=== PATIENT | female | born 1985 | race Two or more races ===

== ENCOUNTER 2016-12-16 19:44 | Emergency (ER) ==
[2016-12-16 19:50] VITALS: BP 113/78; TEMP 98.3; BMI 31.0
--- NOTE | 2016-12-16 19:57 | ED.PDOC ---
General ED Provider: Dr. MAGI FLORIAN-ER Chief Complaint: Sore Throat Stated Complaint: i have a sore throat--my son tested positive for strep Time Seen by Physician: 19:50 Mode of Arrival: Walk-In Information Source: Patient Exam Limitations: No limitations [facility] T[facility] Documentation Reviewed and Agree: Yes EENT Complaint Exam - Throat Complaint/Exam Onset/Duration: 24hrs Symptoms Are: Still present Timimg: Constant Initial Severity: Mild Current Severity: Mild Aggravating: Reports: Eating Alleviating: Reports: Antipyretics Associated Signs and Symptoms: Reports: Fever, Nasal congestion. Denies: Dysphagia, Drooling, Foreign body sensation, Chills, Cough, Wheezing, Hoarseness , Sinus discomfort, Difficulty breathing, Lethargy, Irritability, Decreased activity, Vomiting, Diarrhea, Decreased hearing, Ear drainage Related History: Reports: Similar Episode Uvula Midline: Yes Tasha-tonsillar Fluctuence: No Scarlatinaform Rash Present: No Exanthem: Present: Pharynx Stridor Present: No Sinus Tenderness Present: No Tonsillar Hypertrophy Present: No Tonsillar Exudate Present: No Tasha-tonsillar Swelling Present: No Adenopathy Present: Yes Splenomegaly Present: No Differential Diagnoses: Pharyngitis Review of Systems - Review Of Systems Constitutional: Reports: Fever Eyes: Reports: No symptoms Ears, Nose, Mouth, Throat: Reports: Nose discharge, Throat pain Respiratory: Reports: No symptoms Cardiac: Reports: No symptoms GI: Reports: No symptoms : Reports: No symptoms Musculoskeletal: Reports: No symptoms Skin: Reports: No symptoms Neurological: Reports: No symptoms Endocrine: Reports: No symptoms Hematologic/Lymphatic: Reports: No symptoms All Other Systems: Reviewed and Negative Past Medical History - Past Medical History Endocrine: Reports: Unknown Cardiovascular: Reports: Unknown Respiratory: Reports: Unknown Hematological: Reports: Unknown Gastrointestinal: Reports: Unknown Genitourinary: Reports: Unknown Neuro/Psych: Reports: Unknown Musculoskeletal: Reports: Unknown Cancer: Reports: Unknown Last Menstrual Period: 11/19/16 - Surgical History General Surgical History: Reports: Unknown - Family History Family History: Reports: Unknown - Social History Smoking Status: Current every day smoker Hx Substance Use: No Alcohol Screening: Occasionally - Immunizations Tetanus Shot up to Date: Yes Physical Exam - Physical Exam Appearance: Well-appearing, No pain distress, Well-nourished Pain Distress: Mild Eyes: CHERYL, EOMI, Conjunctiva clear ENT: Rhinorrhea, Erythema Neck: Supple Respiratory: Airway patent, Breath sounds clear, Breath sounds equal, Respirations nonlabored Cardiovascular: RRR, Pulses normal, No rub, No murmur GI/: Soft, Nontender, No masses, Bowel sounds normal, No Organomegaly Musculoskeletal: Normal strength, ROM intact, No edema, No calf tenderness Skin: Warm, Dry, Normal color Neurological: Sensation intact, Motor intact, Reflexes intact, Cranial nerves intact, Alert, Oriented Psychiatric: Affect appropriate, Mood appropriate Critical Care Note - Critical Care Note Total Time (mins): 0 Course - Course Orders, Labs, Meds: Orders Category Date Time Status RAPID FLU A/B Stat LAB 12/16/16 19:44 Uncollected STREP SCREEN Stat LAB 12/16/16 19:44 Uncollected Vital Signs: Temp Pulse Resp BP Pulse Ox 12/16/16 19:44 98.3 F 99 H 20 113/78 97 Departure - Departure Time of Disposition: 19:56 Disposition: HOME SELF-CARE Discharge Problem: Sore throat symptom Instructions: Pharyngitis (ED) Condition: Good Pt referred to PMD for follow-up: Yes Additional Instructions: amoxil 250mg tid x 7 days--tylenol for pain--salt water gargles--rdheck in 72hrs if not better Allergies/Adverse Reactions: Allergies No Known Allergies Allergy (Verified 12/16/16 19:50) Home Medications: Ambulatory Orders Albuterol Sulfate [Proventil Hfa] 2 inh PO Q4H PRN 12/06/13 Disposition Discussed With: Patient, Family
[2016-12-16 20:18] LABS: FLU INTERNAL QC INTERNAL QC VALID; RAPID FLU A NEGATIVE (NEGATIVE); RAPID FLU B NEGATIVE (NEGATIVE)
== END 2016-12-16 20:29 | disposition home or self-care (01) ==
LOC: ED 19:44
DX: J02.9 Acute pharyngitis, unspecified (principal); F17.210 Nicotine dependence, cigarettes, uncomplicated
CPT/HCPCS: 87651; 87804; 87880; 99283

== ENCOUNTER 2017-03-21 19:36 | Emergency (ER) | payer OTHER ==
[2017-03-21 19:47] VITALS: BP 102/69; TEMP 98.3; BMI 28.6
[2017-03-21] MEDS ORDERED: OXYCODONE PO STA (20:06)
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
--- NOTE | 2017-03-21 20:38 | DI ---
EXAM: Right hand; PA, lateral, and oblique views HISTORY: Hand pain COMPARSION: Wrist radiograph from same day. FINDINGS: There is no acute fracture or dislocation. Joint spaces and alignment are maintained. Soft tissues are unremarkable. OPINION: No acute osseous abnormality of the hand.
== END 2017-03-21 20:59 | disposition home or self-care (01) ==
LOC: ED 19:36
DX: S63.501A Unspecified sprain of right wrist, initial encounter (principal); S69.91XA Unspecified injury of right wrist, hand and finger(s), initial encounter; W21.89XA Striking against or struck by other sports equipment, initial encounter
CPT/HCPCS: 99282

== ENCOUNTER 2017-12-29 09:33 | Emergency (ER) ==
[2017-12-29 09:42] VITALS: BP 124/87; TEMP 97.2; BMI 28.6
--- NOTE | 2017-12-29 10:24 | CT ---
EXAM: CT scan brain without contrast HISTORY: Fall COMPARISON: None. FINDINGS: Contiguous axial images obtained from the skull base to the convexities without contrast u tilizing 5-mm collimation. Sagittal and coronal reconstructions were imaged and reviewed. The ventr icles and CSF spaces are within normal limits. There are no acute intracranial findings. Visualized paranasal sinuses and mastoid air cells are clear. The calvarium is intact. IMPRESSION: No acute intracranial findings
--- NOTE | 2017-12-29 10:50 | CT ---
EXAM: CT scan cervical spine HISTORY: Fall COMPARISON: None. FINDINGS: Contiguous axial images obtained from the skull base through C7-C2 one utilizing 2-mm aleksandar imation. Sagittal and coronal reconstructions were imaged and reviewed. There is loss of the normal cervical lordosis suggesting paraspinal muscle spasm. The vertebral bodies are normal in height and alignment. The facet joints are intact.. The central canal and foramen are patent throughout. IMPRESSION: Loss normal cervical lordosis suggesting paraspinal muscle spasm. No acute findings
--- NOTE | 2017-12-29 10:53 | CT ---
EXAM: CT scan thorax without contrast HISTORY: Fall COMPARISON: None. FINDINGS: Contiguous axial images obtained through the thorax without contrast utilizing 5-mm collim ation. Sagittal and coronal reconstructions were imaged and reviewed. The thoracic inlet is unremar kable. The heart is normal in size without pericardial effusion. The lungs are clear bilaterally.. Bone windows reveals no evidence of lytic or blastic lesions. IMPRESSION: No acute intrathoracic findings.
--- NOTE | 2017-12-29 10:55 | CT ---
EXAM: CT scan thoracic spine HISTORY: Fall COMPARISON: None. FINDINGS: Contiguous axial images obtained through the thoracic spine without contrast utilizing 3-m m collimation. Sagittal and coronal reconstructions were imaged and reviewed. The vertebral bodies a re normal in height and alignment. The facet joints are intact. The central canal and foramen are p atent throughout. IMPRESSION: No acute findings
--- NOTE | 2017-12-29 10:58 | CT ---
EXAM: CT scan lumbar spine HISTORY: Fall COMPARISON: None. FINDINGS: Contiguous axial images obtained through the lumbar spine utilizing 3-mm collimation. Sag ittal and coronal reconstructions were imaged and reviewed. The vertebral bodies normal height and a lignment. The facet joints are intact. There is mild levoscoliosis. The central canal foramen are p atent throughout.. There is mild concentric non compressive disc bulge at L4-L5 and L5-S1. Facet ar thropathy is noted at L5-S1. IMPRESSION: Mild levoscoliosis. No acute findings.
--- NOTE | 2017-12-29 10:59 | CT ---
EXAM: CT scan pelvis without contrast HISTORY: Fall COMPARISON: None. FINDINGS: Contiguous axial images obtained through the pelvis without contrast utilizing 3-mm collim ation. Sagittal and coronal reconstructions were imaged and reviewed.. The hip joints and SI joints are intact. There is no acute fracture or dislocation. There is no free intraperitoneal fluid. IMPRESSION: No acute findings.
[2017-12-29] MEDS ORDERED: NORCO 7.5-325 PO STA (11:03)
--- NOTE | 2017-12-29 11:06 | ED.PDOC ---
General ED Provider: Dr. MAGI FLORIAN-ER Chief Complaint: Fall Stated Complaint: i slipped and fell on my porch Time Seen by Physician: 09:40 Mode of Arrival: Walk-In Information Source: Patient Exam Limitations: No limitations [facility] and T[facility] Documentation Reviewed and Agree: No (hx is different--fell from porch not horse) Reviewed sepsis parameters & appropriate labs ordered?: Yes System Inflammatory Response Syndrome: Not Applicable Sepsis Protocol: For patient's 13 years and over: Temp is 96.8 and below OR 101 and greater Pulse >90 BPM Resp >20/minute Acutely Altered Mental Status Are patient's symptoms suggestive of a new infection, such as: -Pneumonia -Skin, Soft Tissue -Endocarditis -UTI -Bone, Joint Infection -Implantable Device -Acute Abdominal Infection -Wound Infection -Meningitis -Blood Stream Catheter Infection -Unknown Trauma/Injury Complaint Exam - Truncal Trauma Complaint/Exam Location of Pain: Reports: Right, Chest Onset: this am Symptoms Are: Still present Onset of Pain: Reports: Immediate Initial Severity: Mild Current Severity: Mild Mechanism: Reports: Blunt trauma, Fall Aggravating: Reports: Movement, Deep breathing, Cough Alleviating: Reports: None Associated Signs and Symptoms: Denies: Short of air, Chest pain, Cough, Hematuria, Abdominal pain, Fever, Nausea, Vomiting Related Surgical History: Reports: None Vertebral Tenderness Present: No Vertebral Deformity Present: No Trachial Deviation Present: No JVD Present: Yes Crepitus Present: No Diminished Breath Sounds: No Muffled Heart Sounds Present: No Paradoxical Chest Wall Movement Present: No Abdominal Guarding Present: No Abdominal Rigidity Present: No Referred Shoulder Pain (Kehr's Sign) Present: No Skin Findings: Present: Normal findings Differential Diagnoses: Cervical Sprain, Thoracic Sprain Review of Systems - Review Of Systems Constitutional: Reports: No symptoms Eyes: Reports: No symptoms Ears, Nose, Mouth, Throat: Reports: No symptoms Respiratory: Reports: No symptoms Cardiac: Reports: No symptoms GI: Reports: No symptoms : Reports: No symptoms Musculoskeletal: Reports: Joint pain, Muscle pain Skin: Reports: No symptoms Neurological: Reports: No symptoms Endocrine: Reports: No symptoms Hematologic/Lymphatic: Reports: No symptoms All Other Systems: Reviewed and Negative Past Medical History - Past Medical History Endocrine: Reports: Unknown Cardiovascular: Reports: Unknown Respiratory: Reports: Unknown Hematological: Reports: Unknown Gastrointestinal: Reports: Unknown Genitourinary: Reports: Unknown Neuro/Psych: Reports: Unknown Musculoskeletal: Reports: Unknown Cancer: Reports: Unknown Last Menstrual Period: 1 yr ago (3 months post ) - Surgical History General Surgical History: Reports: Unknown - Family History Family History: Reports: Unknown - Social History Smoking Status: Current every day smoker, Light tobacco smoker Hx Substance Use: No Alcohol Screening: Occasionally Physical Exam - Physical Exam Appearance: Well-appearing, No pain distress, Well-nourished Pain Distress: Mild Eyes: CHERYL, EOMI, Conjunctiva clear ENT: Ears normal, Nose normal, Oropharynx normal Neck: Supple Respiratory: Airway patent, Breath sounds clear, Breath sounds equal, Respirations nonlabored Cardiovascular: RRR, Pulses normal, No rub, No murmur GI/: Soft, Nontender, No masses, Bowel sounds normal, No Organomegaly Musculoskeletal: Limited ROM Skin: Warm, Dry, Normal color Neurological: Sensation intact, Motor intact, Reflexes intact, Cranial nerves intact, Alert, Oriented Psychiatric: Affect appropriate, Mood appropriate Interpretation - Radiology Interpretation Radiology Interpretation By: Radiologist Radiology Results: Negative Exam Interpreted: CT Scan Critical Care Note - Critical Care Note Total Time (mins): 0 Course - Course Orders, Labs, Meds: Lab Review 12/29/17 09:48 Urine Test Negative Orders Category Date Time Status URINE Stat LAB 12/29/17 09:48 Completed Hydrocodone Bit/Acetaminophen [Sheldon 7.5-325] MEDS 12/29/17 11:03 Stat 1 tab PO ONCE STA CT CERVICAL SPINE W/O CONTRAST Stat RADS 12/29/17 09:[address] CHEST W/O CONTRAST Stat RADS 12/29/17 09:[address] HEAD W/O CONTRAST Stat RADS 12/29/17 09:[address] LUMBAR SPINE W/O CONTRAST Stat RADS 12/29/17 09:[address] PELVIS W/O CONTRAST Stat RADS 12/29/17 09:[address] THORACIC SPINE W/O CONTRAST Stat RADS 12/29/17 09:49 Completed ELBOW, RIGHT MIN 3 VIEWS Stat RADS 12/29/17 09:50 Taken SHOULDER, RIGHT MIN 2V Stat RADS 12/29/17 09:50 Taken Medications Generic Name Dose Route Start Last Admin Trade Name Freq PRN Reason Stop Dose Admin Hydrocodone Bitart/Acetaminophen 1 tab 12/29/17 11:03 Sheldon 7.5-325 PO 12/29/17 11:04 ONCE STA Vital Signs: Temp Pulse Resp BP Pulse Ox 12/29/17 09:34 97.2 F L 90 20 124/87 98 Departure - Departure Time of Disposition: 11:08 Disposition: HOME SELF-CARE Discharge Problem: Contusion Instructions: Contusion in Adults (ED) Condition: Good Pt referred to PMD for follow-up: Yes IPMP verified?: No Additional Instructions: norco 5mg q 6hrs prn pain #10---f/u with pcp Allergies/Adverse Reactions: Allergies No Known Allergies Allergy (Verified 12/29/17 09:39) Home Medications: Ambulatory Orders Albuterol Sulfate [Proventil Hfa] 2 inh PO Q4H PRN 12/06/13 Butalb/Acetaminophen/Caffeine [Fioricet] 1 each PO DIRECTED PRN 03/21/17
--- NOTE | 2017-12-29 11:58 | DI ---
EXAM: Right elbow three views of the HISTORY: Fall COMPARISON: None. FINDINGS: There is no acute fracture, dislocation or joint effusion. The surrounding soft tissues ar e unremarkable. IMPRESSION: No acute findings.
--- NOTE | 2017-12-29 11:58 | DI ---
EXAM: Right shoulder three views HISTORY: Fall COMPARISON: None. FINDINGS: There is no acute fracture or dislocation. The surrounding soft tissues are unremarkable. IMPRESSION: No acute findings
== END 2017-12-29 11:45 | disposition home or self-care (01) ==
LOC: ED 09:33
DX: S29.9XXA Unspecified injury of thorax, initial encounter (principal); W19.XXXA Unspecified fall, initial encounter; F17.210 Nicotine dependence, cigarettes, uncomplicated
CPT/HCPCS: 81025; 99283

== ENCOUNTER 2018-04-14 10:01 | Emergency (ER) ==
[2018-04-14 10:05] VITALS: BP 133/77; TEMP 97.1; BMI 27.8
--- NOTE | 2018-04-14 10:20 | ED.PDOC ---
General ED Provider: Dr. EMELY GOLDEN Chief Complaint: Bite Stated Complaint: Insect bites, R ear lobe and left upper arm Time Seen by Physician: 10:15 Mode of Arrival: Walk-In Information Source: Patient [facility] Nursing and Triage Documentation Reviewed and Agree: Yes Does patient meet sepsis criteria?: No System Inflammatory Response Syndrome: Not Applicable Sepsis Protocol: For patient's 13 years and over: Temp is 96.8 and below OR 101 and greater Pulse >90 BPM Resp >20/minute Acutely Altered Mental Status Are patient's symptoms suggestive of a new infection, such as: -Pneumonia -Skin, Soft Tissue -Endocarditis -UTI -Bone, Joint Infection -Implantable Device -Acute Abdominal Infection -Wound Infection -Meningitis -Blood Stream Catheter Infection -Unknown Review of Systems - Review Of Systems Constitutional: Reports: No symptoms Respiratory: Reports: No symptoms Skin: Reports: Rash (R earlobe swollen and red; L upper arm with punctate "bite " liane and surrounding urticarial rash 1.5 cm X 3 cm) All Other Systems: Reviewed and Negative Past Medical History - Past Medical History Previously Healthy: Yes Endocrine: Reports: Unknown Cardiovascular: Reports: Unknown Respiratory: Reports: Unknown Hematological: Reports: Unknown Gastrointestinal: Reports: Unknown Genitourinary: Reports: Unknown Neuro/Psych: Reports: Unknown Musculoskeletal: Reports: Unknown Cancer: Reports: Unknown Last Menstrual Period: saturday - Surgical History General Surgical History: Reports: Unknown - Family History Family History: Reports: Unknown - Social History Smoking Status: Current every day smoker, Light tobacco smoker Hx Substance Use: No Alcohol Screening: Occasionally Physical Exam - Physical Exam Appearance: Well-appearing Eyes: CHERYL ENT: Ears normal, Nose normal, Oropharynx normal Neck: Supple Respiratory: Airway patent Skin: Warm, Dry, Normal color (Except R earlobe - swollen and erythemic; L upper arm urticarial rash) Neurological: Alert, Oriented Psychiatric: Affect appropriate, Mood appropriate Critical Care Note - Critical Care Note Total Time (mins): 7 Course - Course Vital Signs: Temp Pulse Resp BP Pulse Ox 04/14/18 10:01 97.1 F L 93 H 18 133/77 98 Departure - Departure Time of Disposition: 10:49 Disposition: HOME SELF-CARE Discharge Problem: Cellulitis Qualifiers: Site of cellulitis: face Qualified Code(s): L03.211 - Cellulitis of face Instructions: Cellulitis (ED) Condition: Good Pt referred to PMD for follow-up: Yes (Call for appointment) IPMP verified?: No (No narcotic prescribed) Additional Instructions: Take antibiiotic as prescribed; follow up with primary care provider. May also use benadryl for the reaction associated wtih the other probable insect bite. Prescriptions: Cephalexin [Keflex] 500 mg PO Q8HR #21 capsule Allergies/Adverse Reactions: Allergies No Known Allergies Allergy (Verified 04/14/18 10:05) Home Medications: Ambulatory Orders Albuterol Sulfate [Proventil Hfa] 2 inh PO Q4H PRN 12/06/13 Butalb/Acetaminophen/Caffeine [Fioricet] 1 each PO DIRECTED PRN 03/21/17 Cephalexin [Keflex] 500 mg PO Q8HR #21 capsule 04/14/18 Hydrocodone Bit/Acetaminophen [Solano 5-325] 1.5 each PO DAILY 04/14/18 Methocarbamol [Robaxin] 750 mg PO BID 04/14/18 Vilazodone HCl [Viibryd] 20 mg PO DAILY 04/14/18 Disposition Discussed With: Patient
== END 2018-04-14 11:00 | disposition home or self-care (01) ==
LOC: ED 10:01
DX: H60.11 Cellulitis of right external ear (principal); L50.9 Urticaria, unspecified; S40.862A Insect bite (nonvenomous) of left upper arm, initial encounter; S00.461A Insect bite (nonvenomous) of right ear, initial encounter; W57.XXXA Bitten or stung by nonvenomous insect and other nonvenomous arthropods, initial encounter; F17.210 Nicotine dependence, cigarettes, uncomplicated
CPT/HCPCS: 99282

== ENCOUNTER 2018-04-21 15:26 | Outpatient (CLI) ==
--- NOTE | 2018-04-22 08:17 | DI ---
Exam: Three views of the left wrist. Comparison: None available. Reason for exam: Fall. FINDINGS: No acute fracture or malalignment. The joint spaces appear well maintained. The imaged o sseous structures appear grossly unremarkable without acute fracture. Impression: No acute fracture or dislocation is seen in the left wrist.
== END 2018-04-21 15:27 | disposition home or self-care (01) ==
LOC: RAD 15:26
PROVIDERS: ATTEND Emergency Medicine
DX: M25.532 Pain in left wrist (principal)

== ENCOUNTER 2018-09-29 10:25 | Emergency (ER) ==
[2018-09-29 10:33] VITALS: BP 115/82; TEMP 97.4; BMI 28.6
[2018-09-29] MEDS ORDERED: NORCO 10-325 PO STA (10:34)
[2018-09-29] MEDS ORDERED: TORADOL IM STA (10:34)
[2018-09-29 10:49] LABS: URINE PREGNANCY TEST NEGATIVE (NEGATIVE)
--- NOTE | 2018-09-29 11:50 | DI ---
EXAM: Three views of the right hand HISTORY: Right hand pain. COMPARISON: Right wrist x-rays 09/29/2018 and right hand x-rays 03/21/2017 FINDINGS: There is minimal irregularity and calcification of the lateral PIP joint of the fifth digit not visualized on prior exam. No additional area of cortical irregularity is noted. There is no ly tic or blastic lesion. Joint spaces are maintained. Soft tissues are normal. IMPRESSION: Minimal irregular calcification lateral to the PIP joint of the fifth digit may represent subtle fra cture versus degenerative disease. Recommend correlation with point tenderness.
--- NOTE | 2018-09-29 11:51 | DI ---
EXAM: Three views of the right wrist HISTORY: Pain post fall. COMPARISON: Right wrist x-rays 03/21/2017 FINDINGS: Radiocarpal joint is normal. Carpal bones are unremarkable. There is no displaced fractur e or dislocation. Distal radius and ulna are normal. Soft tissues are normal. IMPRESSION: No acute abnormality of the right wrist.
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
--- NOTE | 2018-09-29 12:13 | CT ---
EXAM: CT thoracic spine without contrast. HISTORY: Initial presentation for back injury due to a fall. COMPARISON: 12/29/2017. TECHNIQUE: Multiple axial images of the thoracic spine were obtained without intravenous contrast. Images were reformatted in the sagittal and coronal planes. FINDINGS: The normal curvature and alignment are maintained. Vertebral body and intervertebral disc heights are normal. No fracture or subluxation is seen. 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 No significant central canal stenosis identified. Adjacent soft tissues a re unremarkable. Visualized lungs are clear. 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 IMPRESSION: No acute abnormality of the thoracic spine.
--- NOTE | 2018-09-29 12:20 | CT ---
EXAM: CT LUMBAR SPINE HISTORY: Fall, back pain TECHNIQUE: CT lumbar spine without contrast. 3-mm axial sections. Coronal and sagittal reformation s. COMPARISON: 12/29/2017 FINDINGS: No fracture is seen. Normal vertebral body height. No spondylolisthesis or scoliosis. Sacroiliac j oints are intact. Mild degenerative disc disease is noted. There is no paraspinal hematoma. IMPRESSION: 1. No fracture or subluxation.
--- NOTE | 2018-09-29 12:37 | ED.PDOC ---
General ED Provider: Dr. LYSSA SCHAFER Chief Complaint: Fall Stated Complaint: fall 1 day ago c/o of hand /wrist pain , back pain , hip pain no neck pain no head injury Time Seen by Physician: 10:30 (seen with gayatri rausch at all times ) Information Source: Patient Exam Limitations: No limitations Primary Care Provider: SUZANNE JOHNSON Nursing and Triage Documentation Reviewed and Agree: Yes Does patient meet sepsis criteria?: No System Inflammatory Response Syndrome: Not Applicable Sepsis Protocol: For patient's 13 years and over: Temp is 96.8 and below OR 101 and greater Pulse >90 BPM Resp >20/minute Acutely Altered Mental Status Are patient's symptoms suggestive of a new infection, such as: -Pneumonia -Skin, Soft Tissue -Endocarditis -UTI -Bone, Joint Infection -Implantable Device -Acute Abdominal Infection -Wound Infection -Meningitis -Blood Stream Catheter Infection -Unknown Trauma/Injury Complaint Exam - Trauma Complaint/Exam Location of Pain or Injury: Reports: RUE (hand wrist), Back, RLE (hip) Mechanism of Injury: Reports: Fall Onset/Duration: 1 day Symptoms Are: Still present Timing of Treatment: Delayed Initial Severity: Mild Current Severity: Mild Character: Reports: Aching Aggravating: Reports: Movement Alleviating: Reports: Rest Associated Signs and Symptoms: Denies: LOC, Confusion, Memory loss, Lethargy, Vomiting, Bleeding, Bruising, Swelling, Extremity disuse, Painful respiration, Hoarseness, Dysphagia, Hemoptysis, Significant blood loss : No Penetrating Injury Risk Factors: Reports: None Related Surgical History: Reports: None Nexus Low Risk Criteria: No post-midline CS tender, No evidence of intoxicat., No Altered LOC, No focal neuro deficit, No distracting injuries Glascow Coma Scale (see protocol): 15 Compartment Syndrome Risk Factors: Present: Pain Trauma Findings: Present: Pelvic tenderness (right hip ). Absent: [place] eyes, Airway obstructed, Labored respirations, Decreased breath sounds, Weak pulses, Absent pulses, Abdominal distention Skin Findings: Present: Normal findings Differential Diagnoses: Fracture, Sprain, Strain Review of Systems - Review Of Systems Constitutional: Reports: No symptoms Eyes: Reports: No symptoms Ears, Nose, Mouth, Throat: Reports: No symptoms Respiratory: Reports: No symptoms Cardiac: Reports: No symptoms GI: Reports: No symptoms : Reports: No symptoms Musculoskeletal: Reports: Back pain, Joint pain (wrist and hip both right sided ) Skin: Reports: No symptoms Neurological: Reports: No symptoms Endocrine: Reports: No symptoms Hematologic/Lymphatic: Reports: No symptoms All Other Systems: Reviewed and Negative Past Medical History - Past Medical History Previously Healthy: Yes Endocrine: Reports: Unknown Cardiovascular: Reports: Unknown Respiratory: Reports: Unknown Hematological: Reports: Unknown Gastrointestinal: Reports: Unknown Genitourinary: Reports: Unknown Neuro/Psych: Reports: Unknown Musculoskeletal: Reports: Unknown Cancer: Reports: Unknown Last Menstrual Period: now - Surgical History General Surgical History: Reports: Unknown - Family History Family History: Reports: Unknown - Social History Smoking Status: Current every day smoker, Light tobacco smoker Hx Substance Use: No Alcohol Screening: Occasionally Physical Exam - Physical Exam Appearance: Well-appearing, No pain distress, Well-nourished Eyes: CHERYL, EOMI, Conjunctiva clear ENT: Ears normal, Nose normal, Oropharynx normal Respiratory: Airway patent, Breath sounds clear, Breath sounds equal, Respirations nonlabored Cardiovascular: RRR, Pulses normal, No rub, No murmur GI/: Soft, Nontender, No masses, Bowel sounds normal, No Organomegaly Musculoskeletal: Normal strength, ROM intact, No edema, No calf tenderness Skin: Warm, Dry, Normal color Neurological: Sensation intact, Motor intact, Reflexes intact, Cranial nerves intact, Alert, Oriented Psychiatric: Affect appropriate, Mood appropriate Interpretation - Radiology Interpretation Radiology Interpretation By: Radiologist Radiology Results: No acute changes Critical Care Note - Critical Care Note Total Time (mins): 0 Course - Course Orders, Labs, Meds: Lab Review 09/29/18 10:40 Urine Test Negative Orders Category Date Time Status URINE Stat LAB 09/29/18 10:40 Completed Hydrocodone Bit/Acetaminophen [[place] 10-325] MEDS 09/29/18 10:34 Discontinued 1 tab PO ONCE STA Ketorolac Tromethamine [Toradol] MEDS 09/29/18 10:34 Discontinued 60 mg IM ONCE STA CT LUMBAR SPINE W/O CONTRAST Stat RADS 09/29/18 10:[address] PELVIS W/O CONTRAST Stat RADS 09/29/18 10:[address] THORACIC SPINE W/O CONTRAST Stat RADS 09/29/18 10:33 Completed HAND, RIGHT 3 VIEWS Stat RADS 09/29/18 10:37 Completed WRIST, RIGHT 3 VIEWS Stat RADS 09/29/18 10:37 Completed Medications Discontinued Medications Generic Name Dose Route Start Last Admin Trade Name Gladys PRN Reason Stop Dose Admin Hydrocodone Bitart/Acetaminophen 1 tab 09/29/18 10:34 09/29/18 10:52 [place] 10-325 PO 09/29/18 10:35 1 tab ONCE STA Administration Ketorolac Tromethamine 60 mg 09/29/18 10:34 09/29/18 10:54 Toradol IM 09/29/18 10:35 60 mg ONCE STA Administration Vital Signs: Temp Pulse Resp BP Pulse Ox 09/29/18 10:26 97.4 F L 83 20 115/82 98 Departure - Departure Time of Disposition: 12:38 Disposition: HOME SELF-CARE Discharge Problem: Hand pain, right Wrist pain, acute Qualifiers: Laterality: right Qualified Code(s): M25.531 - Pain in right wrist Hip pain, acute Qualifiers: Laterality: right Qualified Code(s): M25.551 - Pain in right hip Back pain Qualifiers: Back pain location: low back pain Chronicity: acute Instructions: Acute Low Back Pain (ED), Wrist Sprain (ED), Hip Sprain (ED) Condition: Good Pt referred to PMD for follow-up: Yes IPMP verified?: No Additional Instructions: Please call your Family Physician as soon as possible to schedule a follow-up appointment. Allergies/Adverse Reactions: Allergies No Known Allergies Allergy (Verified 09/29/18 10:35) Home Medications: Ambulatory Orders Albuterol Sulfate [Proventil Hfa] 2 inh PO Q4H PRN 12/06/13 Methocarbamol [Robaxin] 750 mg PO BID 04/14/18
== END 2018-09-29 13:02 | disposition home or self-care (01) ==
LOC: ED 10:25
DX: S62.616A Displaced fracture of proximal phalanx of right little finger, initial encounter for closed fracture (principal); M54.5 Low back pain; M79.641 Pain in right hand; M25.531 Pain in right wrist; W19.XXXA Unspecified fall, initial encounter; F17.210 Nicotine dependence, cigarettes, uncomplicated
CPT/HCPCS: 81025; 96372; 99283

== ENCOUNTER 2018-11-28 09:25 | Outpatient (CLI) ==
--- NOTE | 2018-11-28 10:05 | US ---
EXAM: Nonvascular ultrasound of the chest. History: Right back mass. Technique: Multiple sonographic images through the right upper back were obtained. Color duplex Dop pler was used to interrogate vascular flow. Findings: Just beneath the skin of the right upper back in the region of interest there is a 4.2 cm x 1.5 cm x 4.6 cm complex collection of fluid with internal echoes and debris with surrounding hyperva scularity. Impression: Complex collection of fluid within the right back highly suspicious for abscess.
[2018-11-28] MEDS ORDERED: LIDOCAINE 1%-EPI 1:100,000 10 ML (SURGERY) INJ ONE (11:52)
[2018-11-28] MEDS ORDERED: POLYSPORIN 0.9 GM PACKET TP PRN (11:53)
[2018-11-28 12:00] VITALS: TEMP 98.6
[2018-11-28] MEDS ORDERED: LIDOCAINE 1% 20 ML MDV ID STA (12:00)
[2018-11-28 12:21] LABS: URINE PREGNANCY TEST NEGATIVE (NEGATIVE)
[2018-11-28] MEDS ORDERED: DIPRIVAN 20 ML VIAL IVP ONE (12:45)
[2018-11-28] MEDS ORDERED: VERSED ONE (12:45)
[2018-11-28 14:02] VITALS: BP 112/79
== END 2018-11-28 14:12 | disposition home or self-care (01) ==
LOC: SURG 09:25
PROVIDERS: ATTEND General Practice
DX: L72.0 Epidermal cyst (principal)
CPT/HCPCS: 36415; 80053; 81025; 84703; 85025; 87040; 87070; 87075

== ENCOUNTER 2019-02-10 09:53 | Outpatient (CLI) ==
--- NOTE | 2019-02-10 16:39 | MRI ---
EXAM: Cervical spine MRI without contrast. HISTORY: Spinal stenosis. COMPARISON: Cervical spine CT scan 12/29/2017 and cervical spine MRI 08/18/2016. TECHNIQUE: Multiplanar, multisequence MR images were acquired of the cervical spine without contrast . FINDINGS: The craniocervical junction is normal and the cervical cord has no abnormal T2 hyperintens ities. The pituitary gland is small with a mildly concave anterior superior border. The patient's h ead is slightly tilted to the right. There is straightening of the usual cervical lordosis. The cer vical vertebra are normal in height and intrinsic bone marrow signal. There are no paravertebral mas ses. Visualized lung apices are clear. C2-3: The intervertebral disc is normal. There is minor left uncovertebral hypertrophy. There is no central canal stenosis or foraminal stenosis. C3-4: There is a minor disc bulge that is asymmetric to the left and minor bilateral uncovertebral h ypertrophy. There is no central canal stenosis or foraminal stenosis. C4-5: There is a mild disc bulge, minor left greater than right uncovertebral hypertrophy and mild l eft facet arthropathy. There is no central canal stenosis or foraminal stenosis. C5-6: There is a minor posterior disc bulge and mild right and minor left uncovertebral hypertrophy. There is no central canal stenosis or foraminal stenosis. C6-7: There is a minor disc bulge. There is no central canal stenosis or foraminal stenosis. C7-T1: The intervertebral disc is normal. IMPRESSION: 1. No change minor cervical degenerative spondylosis and facet arthropathy. 2. No cervical disc herniations, central canal stenosis or significant foraminal stenosis.
== END 2019-02-10 09:54 | disposition home or self-care (01) ==
LOC: RAD 09:53
PROVIDERS: ATTEND Nurse Practitioner
DX: M48.02 Spinal stenosis, cervical region (principal); M50.122 Cervical disc disorder at C5-C6 level with radiculopathy; M50.322 Other cervical disc degeneration at C5-C6 level; M47.812 Spondylosis without myelopathy or radiculopathy, cervical region; M47.22 Other spondylosis with radiculopathy, cervical region

== ENCOUNTER 2019-03-04 10:00 | Outpatient (CLI) | END 2019-03-04 10:01 | disposition home or self-care (01) | LOC: LAB 10:00 | PROVIDERS: ATTEND General Practice | DX: R06.83 Snoring (principal); R40.0 Somnolence; J45.909 Unspecified asthma, uncomplicated; F32.89 Other specified depressive episodes; M25.561 Pain in right knee; G89.29 Other chronic pain | CPT/HCPCS: 36415; 84439; 84443 ==